=== PATIENT | female | born 1975 | race Hispanic/Latino ===

== ENCOUNTER → 2025-02-14 10:42 | Outpatient (REF) | payer OTHER, SELFPAY ==
[2025-02-14 11:46] LABS: Hematocrit 37.4 % (37.0-47.0); Hemoglobin 12.1 g/dL (12.0-16.0); Mean Corp Hgb Conc. 32.4 g/dL (33.0-37.0); Mean Corpuscular Hgb 24.7 pg (27.0-31.0); Mean Corpuscular Volume 76.3 fL (81.0-99.0); Red Cell Dist. Width 14.9 % (11.5-14.5); White Blood Cell Count 5.4 10^3/uL (4.8-10.8)
[2025-02-14 11:47] LABS: % Basophils 0.9 % (0-2); % Immature Granulocytes 0.6 % (0-0.5); % Lymphocytes 31.2 % (20.5-51.1); % Monocytes 3.3 % (1.7-9.3); Absolute Basophils 0.1 10^3/uL (0-0.2); Absolute Eosinophils 0.1 10^3/uL (0-0.7); Absolute Lymphocytes 1.7 10^3/uL (1.2-3.4); Absolute Monocytes 0.2 10^3/uL (0.1-0.6); Absolute Neutrophils 3.4 10^3/uL (1.4-6.5); Nucleated Red Blood Cells % 0 %
[2025-02-14 12:07] LABS: ALT (SGPT) 56 U/L (0-35); AST (SGOT) 70 U/L (14-36); Albumin 4.4 g/dl (3.5-5.0); Alkaline Phosphatase 83 U/L (38-126); Blood Urea Nitrogen 14 mg/dl (7-17); Calcium 9.4 mg/dl (8.4-10.2); Carbon Dioxide 24 mmol/L (22-30); Chloride 109 mmol/L (98-107); Glucose 92 mg/dl (70-99); Sodium 140 mmol/L (135-145); Total Bilirubin 0.4 mg/dl (0.2-1.3); eGFR > 60.00
[2025-02-14 12:11] LABS: Erythrocyte Sed Rate 14 mm/hour (0-20)
[2025-02-14 12:56] LABS: Vitamin B12 411 pg/ml (239-931)
[2025-02-17 07:17] LABS: CCP Antibody IgG/IgA 6 Units (0-19)
== END ==
LOC: CLINIC 10:42
PROVIDERS: ATTENDING PHYSICIAN Internal Medicine
DX: R20.2 Paresthesia of skin (principal)
CPT/HCPCS: 36415; 80053; 82607; 83036; 85025; 85652; 86200; 86430

== ENCOUNTER → 2025-04-08 12:11 | Outpatient (REF) | payer OTHER, SELFPAY | LOC: HWRAD 12:11 | PROVIDERS: ATTENDING PHYSICIAN Internal Medicine | DX: R74.8 Abnormal levels of other serum enzymes (principal) | CPT/HCPCS: 76700 ==

== ENCOUNTER → 2025-04-25 15:19 | Outpatient (REF) | payer OTHER, SELFPAY ==
[2025-04-25 16:57] LABS: ALT (SGPT) 27 U/L (0-35); AST (SGOT) 23 U/L (14-36); Albumin 4.3 g/dl (3.5-5.0); Alkaline Phosphatase 64 U/L (38-126); Total Protein 7.0 g/dl (6.3-8.2)
[2025-04-25 19:12] LABS: Hepatitis C Antibody Negative (Negative)
== END ==
LOC: CLINIC 15:19
PROVIDERS: ATTENDING PHYSICIAN Internal Medicine
DX: R74.8 Abnormal levels of other serum enzymes (principal)
CPT/HCPCS: 36415; 80076; 86803

== ENCOUNTER → 2025-08-28 18:39 | Outpatient (REF) | payer OTHER, SELFPAY | LOC: WDC 18:39 | PROVIDERS: ATTENDING PHYSICIAN Nurse Practitioner Adult Health | DX: Z12.31 Encounter for screening mammogram for malignant neoplasm of breast (principal) | CPT/HCPCS: 77063; 77067 ==